=== PATIENT | male | born 1980 | race Caucasian/White ===

== ENCOUNTER 2018-10-18 13:24 | Day surgery (SDC) | payer OTHER ==
[~2018-10-18 13:24] MED LIST: CEFAZOLIN 2 GM/50 ML (PMX) 50 ML IVPB
[2018-10-18] MEDS ORDERED: LIDOCAINE 1% (MPF) 30 ML INJ (15:15)
[2018-10-18] MEDS ORDERED: ROPIVACAINE 0.5 % 30 ML VIAL (15:15)
[2018-10-18] MEDS ORDERED: LIDOCAINE 1%/EPI 30 ML INJ (15:15)
[2018-10-18] MEDS ORDERED: KETOROLAC 30 MG INJ (15:27)
[2018-10-18] MEDS ORDERED: FENTAnyl 50 MCG/ML VIAL (15:27)
[2018-10-18] MEDS ORDERED: PROPOFOL 20 ML (15:27)
[2018-10-18] MEDS ORDERED: ONDANSETRON 4 MG INJ (15:27)
[2018-10-18] MEDS ORDERED: METOCLOPRAMIDE 10 MG INJ (15:27)
[2018-10-18] MEDS ORDERED: CEFAZOLIN 1 GM INJ (15:27)
[2018-10-18] MEDS ORDERED: MIDAZOLAM 1 MG/ML 2 ML INJ (15:27)
[2018-10-18] MEDS ORDERED: OXYCODONE/ACETAMINOPHEN (5/325) TAB PO ×4 (15:30→18:00)
[2018-10-18] MEDS ORDERED: HYDROmorphONE 1 MG/5 ML IV SYRINGE IV (15:30)
[2018-10-18] MEDS ORDERED: DIPHENHYDRAMINE 50 MG INJ IV (15:30)
[2018-10-18] MEDS: ROPIVACAINE 0.2% 20 ML VIAL (16:26)
[2018-10-18] MEDS: BACITRACIN 0.9 GM OINT (16:26)
[2018-10-18] MEDS: POLYMYXIN/BACITRACIN 1L IRRIG (16:26)
[2018-10-18] MEDS ORDERED: LACTATED RINGER'S 1,000 ML IV (17:41)
[2018-10-18] MEDS ORDERED: KETOROLAC 30 MG INJ IV (18:00)
[2018-10-18] MEDS ORDERED: morphine 2 MG INJ IV (18:00)
[2018-10-18] MEDS ORDERED: morphine 10 MG INJ IM (18:00)
[2018-10-18] MEDS ORDERED: ONDANSETRON 4 MG INJ IV (18:00)
[2018-10-18] MEDS ORDERED: HYDROCODONE/APAP (5/325) TAB PO ×2 (18:00)
[2018-10-18] MEDS ORDERED: IBUPROFEN 600 MG TAB PO (18:00)
[2018-10-18] MEDS: MEPERIDINE 25 MG INJ IV (18:06)
[2018-10-18] MEDS: ONDANSETRON 4 MG INJ IV (18:06)
[2018-10-18] MEDS: HYDROmorphONE 1 MG/5 ML IV SYRINGE IV ×2 (18:14→18:25)
[2018-10-18] MEDS: KETOROLAC 30 MG INJ IV (19:37)
== END 2018-10-18 20:15 | disposition home or self-care (01) ==
LOC: SDS 13:24
DX: S62.032K Displaced fracture of proximal third of navicular [scaphoid] bone of left wrist, subsequent encounter for fracture with nonunion (principal); X58.XXXD Exposure to other specified factors, subsequent encounter
CPT/HCPCS: 25628; 73110-LT